=== PATIENT | female | born 1985 ===

== ENCOUNTER 2017-12-25 07:44 | Inpatient (IN) | payer OTHER ==
[~2017-12-25 07:44] MED LIST: NASONEX17 GM NS; TUSSI-PRES LIQ120 ML PO; XYZAL5 MG PO; ZITHROMAX TRI-500 MG PO
== END 2017-12-26 17:52 | disposition home or self-care (01) | DRG 770 ==
LOC: CIR.AMB 07:44 → O/R 17:28 → OB/GYN 17:55 → SURH 19:42
PROVIDERS: Obstetrics & Gynecology
PROC: 10D17Z9 Manual Extraction of Products of Conception, Retained, Via Natural or Artificial Opening (ICD-10-PCS; principal; 2017-12-25 07:00)
PROC: BW21ZZZ Computerized Tomography (CT Scan) of Abdomen and Pelvis (ICD-10-PCS; 2017-12-26)
DX: O02.1 Missed abortion (principal); N99.62 Intraoperative hemorrhage and hematoma of a genitourinary system organ or structure complicating other procedure

== ENCOUNTER 2020-12-02 12:20 | Emergency (ER) | payer OTHER ==
[~2020-12-02] VITALS: Ht 167.6 cm; Wt 79.4 kg
== END 2020-12-02 16:30 | disposition home or self-care (01) ==
LOC: ER 12:20
DX: N64.4 Mastodynia (principal)